=== PATIENT | female | born 1980 | race Caucasian/White ===

== ENCOUNTER → 2016-12-07 | Outpatient (CLI) | payer OTHER ==
[2016-12-07 15:18] LABS: THYROID STIMULATING HORMONE 2.44 uIu/ml (0.300-4.500)
== END | disposition home or self-care (01) ==
LOC: C.LAB 13:15
PROVIDERS: ATTEND Family Medicine
DX: R63.5 Abnormal weight gain (principal)

== ENCOUNTER → 2018-01-26 | Outpatient (CLI) | payer OTHER | END | disposition home or self-care (01) | LOC: C.PAPS 09:30 | PROVIDERS: ATTEND Physician Assistant | DX: Z12.4 Encounter for screening for malignant neoplasm of cervix (principal); N64.4 Mastodynia ==

== ENCOUNTER → 2018-06-01 | Outpatient (CLI) | payer OTHER ==
--- NOTE | 2018-06-02 12:45 | PULMONARY FUNCTION TEST ---
Spirometry is normal. Repeat study done following bronchodilator showed no significant change in function. Lung volumes showed decreased residual volume and FRC but with normal TLC. This may be related to body habitus. Diffusion capacity is normal.
== END | disposition home or self-care (01) ==
LOC: C.RC 13:38
PROVIDERS: ATTEND Nurse Practitioner
DX: Z01.811 Encounter for preprocedural respiratory examination (principal)

== ENCOUNTER → 2018-06-02 | Outpatient (CLI) | payer OTHER | END | disposition home or self-care (01) | LOC: C.LAB 15:39 | PROVIDERS: ATTEND Nurse Practitioner | DX: Z13.89 Encounter for screening for other disorder (principal) ==